=== PATIENT | female | born 1930 | race Caucasian/White ===

== ENCOUNTER 2018-03-02 17:13 | Emergency (ER) | payer OTHER, BC ==
[2018-03-02 17:34] VITALS: BP 117/77; PULSE 89; TEMP 97.6; BMI 24.5
[2018-03-02] MEDS ORDERED: LIDOCAINE HCL 2% (20ML MULTI-DOSE VIAL) NR ONE (19:54)
[2018-03-02] MEDS ORDERED: CEPHALEXIN MONOHYDRATE 500 MG CAPSULE (UD) PO ONE (20:46)
--- NOTE | 2018-03-02 20:46 | PDOC ---
History of Present Illness - General Chief Complaint: Injury Stated Complaint: LEFT THUMB INJURY Time Seen by Provider: 03/02/18 19:14 - History of Present Illness Initial Comments: This 87-year-old woman with a history of HTN/breast carcinoma/DVT presents with history of injury to her left thumb. Just prior to presentation, she closed her left thumb in a car door. Patient is currently on anticoagulation (Xarelto ) because of her DVT. No other injury sustained. Past History - Past Medical History Allergies/Adverse Reactions: Allergies Allergy/AdvReac Type Severity Reaction Status Date / Time No Known Allergies Allergy Verified 03/02/18 17:17 Home Medications: Ambulatory Orders Baclofen mg PO ASDIR 03/02/18 Biotin 1 mg PO DAILY 03/02/18 Calcium Carbonate/Vitamin D3 [Calcium 600+D Softgel] 1 each PO DAILY 03/02/18 Cephalexin Monohydrate [Keflex -] 500 mg PO Q8H #15 capsule 03/02/18 Hydrochlorothiazide [Hctz -] 12.5 mg PO DAILY 03/02/18 Levothyroxine [Synthroid -] 50 mcg PO DAILY 03/02/18 Liothyronine Sodium 5 mcg PO DAILY 03/02/18 Lisinopril 5 mg PO DAILY 03/02/18 Multivitamin [One Daily] 1 each PO DAILY 03/02/18 Rivaroxaban [Xarelto -] 20 mg PO DAILY 03/02/18 Cancer: Yes (BREAST) COPD: No HTN: Yes Other medical history: LEFT LEG DVT - Suicide/Smoking/Psychosocial Hx Smoking History: Never smoked Hx Alcohol Use: No Review of Systems - Review of Systems Able to Perform ROS?: Yes Comments:: 12 point review of systems is negative except for what is noted in the history of present illness *Physical Exam - Vital Signs Last Vital Signs Temp Pulse Resp BP Pulse Ox 97.6 F 89 18 117/77 99 03/02/18 17:13 03/02/18 17:13 03/02/18 17:13 03/02/18 17:13 03/02/18 17:13 - Physical Exam Comments: GENERAL: Elderly female, alert and oriented 3, in no acute distress EXTREMITIES: Left upper extremity-edema/tenderness/subungual hematoma of thumb No deformity of thumb noted and full motor/sensory functioning intact Extremity exam otherwise normal NEUROLOGICAL: Cranial nerves II through XII grossly intact. Normal speech. No focal neurological deficits. SKIN: Warm, Dry, normal turgor, no rashes or lesions noted except that described above. Medical Decision Making - Medical Decision Making Patient and her daughter requested plastic surgery consult and Dr.Neal Rice evaluated and treated patient in the ER. Full treatment description as per his consult note. Left thumb x-ray revealed tuft fracture of the distal phalanx. Nailbed laceration repaired and thumb splinted as per Dr. Rice. Since this was an open fracture, patient was treated with Keflex 500 mg by mouth. Prescription for Keflex 500 mg 3 times a day for 5 days was sent to patient's pharmacy. Follow-up will be within the next 5-7 days, either with Dr. Rice or with patient's physician in [place] (patient is visiting her daughter and lives in [place]) 03/03/18 01:30 *DC/Admit/Observation/Transfer Diagnosis at time of Disposition: Open fracture of left thumb Qualifiers: Encounter type: initial encounter Phalanx: distal Fracture alignment: nondisplaced Qualified Code(s): S62.525B - Nondisplaced fracture of distal phalanx of left thumb, initial encounter for open fracture - Discharge Dispostion Disposition: HOME Condition at time of disposition: Stable - Prescriptions Prescriptions: Cephalexin Monohydrate [Keflex -] 500 mg PO Q8H #15 capsule - Referrals Referrals: Isai Rice MD [Staff Physician] - 1 week - Patient Instructions Printed Discharge Instructions: Finger Fracture Additional Instructions: Keep the left thumb elevated and is dry as possible for the next several days Keflex 500 mg 3 times a day for 5 days Follow-up with Dr. Rice or your private physician within one week - Post Discharge Activity
[2018-03-02] MEDS ORDERED: ACETAMINOPHEN 500 MG TABLET (FP) PO ONE (20:57)
--- NOTE | 2018-03-03 16:15 | OP ---
DATE OF OPERATION: 03/02/2018 TITLE OF PROCEDURE: Left thumb open reduction and splint stabilization of distal phalanx fracture, displaced with separate nailbed repair and complex laceration repair. ATTENDING SURGEON: Isai Rice MD Patient is seen at the request of referring physician, Dr. Parra. The history is that this is an 87-year-old female who is right hand dominant, suffered a crush injury to the left thumb from a car door, brought into the [facility] Emergency Room for evaluation and treatment. PAST MEDICAL AND SURGICAL HISTORY: Noncontributory. REVIEW OF SYSTEMS: Negative for any bleeding, coagulopathy, recent fevers, infection, change in mental status or . PHYSICAL EXAMINATION: Head and Neck: Atraumatic. Abdomen: Soft, nontender. Extremities: Warm and well perfused. The patient has a deformity with lacerations to the left thumb. There is a subungual hematoma. X-ray shows a displaced tuft fracture. The patient is counseled on recommendation for temporary nail plate removal, repair of nail bed, repair of laceration, stabilization of fracture. She understands, agrees to proceed with the procedure as follows. The thumb is given a 4-mL 2% plain digital block. After which, a tourniquet is applied which was removed at the end of the procedure. The nail plate is removed after the thumb is prepped and draped in standard surgical fashion. This is exposing a trans-nailbed laceration. The manual reduction of the fracture is performed. The laceration is repaired with a series of interrupted 5-0 Vicryl suture. The paronychial and eponychial tissues are then repaired with a series of interrupted 5-0 nylon suture. The tourniquet is removed. Hemostasis is achieved. The finger is pink and viable at the end of the procedure, and a nail plate is trimmed and placed back into the eponychial fold for purposes of stenting; 4-0 nylon stenting suture is applied. At the completion of this, bacitracin, Xeroform, Kostas, and AlumaFoam splint are applied. Patient is instructed on elevation, started on antibiotics. Will follow up with Dr. Rice or her primary care doctor because she lives in [place]. They will provide a hand surgeon for her to follow up with there if she does not follow up with me within 1 week. Patient is also given instructions for elevation and maintaining the splint dry. Jai WATT/[id number]
== END 2018-03-02 21:07 | disposition home or self-care (01) ==
LOC: FER 17:13
PROC: 0PSSXZZ Reposition Left Thumb Phalanx, External Approach (ICD-10-PCS; principal; 2018-03-02)
DX: S62.525B Nondisplaced fracture of distal phalanx of left thumb, initial encounter for open fracture (principal); W23.1XXA Caught, crushed, jammed, or pinched between stationary objects, initial encounter; Y93.89 Activity, other specified; Y92.9 Unspecified place or not applicable; I10 Essential (primary) hypertension; Z85.3 Personal history of malignant neoplasm of breast; Z86.718 Personal history of other venous thrombosis and embolism
CPT/HCPCS: 73140-TC-LT-FY; 99282-25